=== PATIENT | female | born 1955 | race Caucasian/White ===

== ENCOUNTER 2020-07-27 11:29 | Outpatient (CLI) | payer MEDICARE | END 2020-07-27 11:30 | disposition home or self-care (01) | LOC: MRI 11:29 | PROVIDERS: ATTEND Nurse Practitioner Family | DX: M48.062 Spinal stenosis, lumbar region with neurogenic claudication (principal); M47.816 Spondylosis without myelopathy or radiculopathy, lumbar region; M51.26 Other intervertebral disc displacement, lumbar region; M25.78 Osteophyte, vertebrae | CPT/HCPCS: 72148 ==

== ENCOUNTER 2024-12-16 07:36 | Outpatient (CLI) | payer MEDICARE | END 2024-12-16 07:37 | disposition home or self-care (01) | LOC: MRI 07:36 | PROVIDERS: ATTEND Nurse Practitioner Family | DX: M48.062 Spinal stenosis, lumbar region with neurogenic claudication (principal); I51.7 Cardiomegaly; M48.07 Spinal stenosis, lumbosacral region | CPT/HCPCS: 71046; 72148; 76014 ==